=== PATIENT | male | born 1970 | race Caucasian/White ===

== ENCOUNTER 2016-10-20 04:41 | Emergency (ER) | payer OTHER ==
[2016-10-20 04:56] VITALS: BP 119/77; PULSE 84; TEMP 97.8; BMI 32.3
--- NOTE | 2016-10-20 04:59 | PDOC ---
History of Present Illness - General Chief Complaint: Pain, Acute Stated Complaint: RIGHT FLANK PAIN Time Seen by Provider: 10/20/16 04:58 History Source: Patient Exam Limitations: No Limitations - History of Present Illness Initial Comments: 10/20/16 05:03 This is a 46-year-old male who comes in complaining of acute onset of severe right flank pain associated with vomiting 2. Patient took 2 ibuprofen and said that pain has now resolved. However patient did say that the pain radiated to his right lower quadrant area and he denies any fevers or chills. There was no hematuria. Patient says he was doing some heavy lifting at work prior to the onset of these symptoms as well. Patient denies any radiation to the groin or leg. PAST MEDICAL HISTORY: no significant history PAST SURGICAL HISTORY: no significant history FAMILY HISTORY: no pertinant history SOCIAL HISTORY: Pt lives with family and is employed. MEDICATIONS: reviewed ALLERGIES: As per nursing notes Review of Systems General: No fevers or chills, no weakness, no weight loss HEENT: No change in vision. No sore throat,. No ear pain CardioVascular: No chest pain or shortness of breath Respiratory:No cough, or wheezing. Gastrointestinal: no nausea, vomitting, diarrhea or constipation, No rectal bleeding Genitourinary: No dysuria, hematuria, or frequency Musculoskeletal: No joint or muscle pain or swelling + right flank pain Neurologic: No headache, vertigo, dizziness or loss of consciousness Psychiatric: nor depression Skin: No rashes or easy bruising Endocrine: no increased thirst or abnormal weight change Allergic: no skin or latex allergy All other systems reviewed and normal GENERAL: The patient is awake, alert, and fully oriented, in no acute distress. HEAD: Normal with no signs of trauma. EYES: Pupils equal, round and reactive to light, extraocular movements intact, sclera anicteric, conjunctiva clear. BACK: There is tenderness on pressure palpation right flank ABDOMEN: Normal bowel sounds, soft nontender on exam EXTREMITIES: Normal range of motion, no edema. NEUROLOGICAL: Normal speech, normal gait. PSYCH: Normal mood, normal affect. SKIN: Warm, Dry, normal turgor, no rashes or lesions noted. 10/20/16 06:53 CT scan is negative for any hydronephrosis, hydroureter or renal stones. CT scan is normal.. Assessment and plan: This is a 46-year-old male who comes in complaining of right flank pain acute onset that resolved prior to his coming into the ER post taking some ibuprofen. Patient has been pain-free here in the emergency room a workup was done that included a CAT scan which was negative. Patient's lab work was otherwise unremarkable with the exception of a mildly elevated white count most likely secondary to the pain and no left shift. Also very mildly elevated glucose. Patient remained pain free while in the emergency room and was discharged home told to continue the ibuprofen if pain returned and follow-up with his primary care doctor. Past History - Past Medical History Allergies/Adverse Reactions: Allergies Allergy/AdvReac Type Severity Reaction Status Date / Time No Known Allergies Allergy Verified 10/20/16 04:50 Home Medications: Ambulatory Orders Lisinopril 5 mg PO DAILY 10/20/16 HTN: Yes - Psycho/Social/Smoking Cessation Hx Anxiety: No Suicidal Ideation: No Smoking History: Never smoked Have you smoked in the past 12 months: No Information on smoking cessation initiated: No Hx Alcohol Use: No Drug/Substance Use Hx: No Substance Use Type: None *Physical Exam - Vital Signs Last Vital Signs Temp Pulse Resp BP Pulse Ox 97.8 F 84 16 119/77 100 10/20/16 04:52 10/20/16 04:52 10/20/16 04:52 10/20/16 04:52 10/20/16 04:52 ED Treatment Course - LABORATORY CBC & Chemistry Diagram: 10/20/16 05:05 10/20/16 05:05 *DC/Admit/Observation/Transfer Diagnosis at time of Disposition: Right flank pain - Discharge Dispostion Disposition: HOME Condition at time of disposition: Stable - Patient Instructions Additional Instructions: Tylenol or Motrin as needed for pain. Return to the emergency department immediately with ANY new, persistent or worsening symptoms. Continue any medications as previously prescribed by your physician. You should follow up with your primary doctor as soon as possible regarding today's emergency department visit. . Please make sure your doctor reviews the results of your emergency evaluation. Thank you for coming to the Emergency Department today for your care. It was a pleasure to see you today. Please note that your evaluation is INCOMPLETE until you follow-up with your doctor.
[2016-10-20] MEDS ORDERED: SODIUM CHLORIDE 1,000 ML IV ONE (05:01)
[2016-10-20] MEDS ORDERED: ONDANSETRON 4 MG/2 ML VIAL IVPUSH ONE (05:02)
[2016-10-20 05:48] LABS: BASOPHIL 0.4 % (0-2.0); EOSINOPHIL 1.5 % (0-4.5); MCH 31.2 pg (25.7-33.7); MCHC 33.7 g/dl (32.0-35.9); MEAN CELL VOLUME 92.5 fl (80-96); MEAN PLT VOLUME 9.2 fl (7.5-11.1); NEUTROPHILS 78.2 % (42.8-82.8); PLATELET COUNT 270 K/MM3 (134-434); RDW 12.9 % (11.9-15.9); WHITE BLOOD COUNT 10.3 K/mm3 (4.0-10.0)
[2016-10-20 06:08] LABS: ALBUMIN 4.3 g/dl (3.4-5.0); ALK PHOS 52 U/L (45-117); ANION GAP 4 (8-16); BILIRUBIN,TOTAL 0.4 mg/dL (0.2-1.0); CALCIUM 8.9 mg/dL (8.5-10.1); CO2 32 mmol/L (21-32); CREATININE 1.1 mg/dL (0.7-1.3); GLUCOSE,RANDOM 114 mg/dL (74-106); SGOT/AST 11 U/L (15-37); SGPT/ALT 14 U/L (12-78); TOT PROT 7.3 g/dl (6.4-8.2)
[2016-10-20 06:48] LABS: URINE APPEARANCE CLEAR; URINE BILIRUBIN NEGATIVE (NEGATIVE); URINE COLOR YELLOW; URINE GLUCOSE (UA) NEGATIVE (NEGATIVE); URINE KETONE NEGATIVE (NEGATIVE); URINE LEUK ESTERASE NEGATIVE (NEGATIVE); URINE NITRITE NEGATIVE (NEGATIVE); URINE PROTEIN NEGATIVE (NEGATIVE); URINE UROBILINOGEN NEGATIVE E.U./dl (0.2-1.0)
[2016-10-20 07:22] LABS: URINE BLOOD 2+ (NEGATIVE)
[2016-10-20 07:23] LABS: URINE BACTERIA RARE /hpf (NONE SEEN); URINE MUCUS FEW; URINE RBC 35 /hpf (0-3); URINE WBC 4 /hpf (3-5)
== END 2016-10-20 07:49 | disposition home or self-care (01) ==
LOC: FER 04:41
PROC: 3E0337Z Introduction of Electrolytic and Water Balance Substance into Peripheral Vein, Percutaneous Approach (ICD-10-PCS; principal; 2016-10-20)
DX: R10.31 Right lower quadrant pain (principal); I10 Essential (primary) hypertension
CPT/HCPCS: 36415; 74176-TC; 80053; 81003; 81015; 85025; 99281-25